=== PATIENT | female | born 1950 | race Caucasian/White ===

== ENCOUNTER 2017-08-08 23:32 | Inpatient (IN) | payer MEDICARE ==
[~2017-08-08] VITALS: Ht 157.5 cm; Wt 61.8 kg
[2017-08-09] MEDS ORDERED: ONDANSETRON 2MG/ML, 2ML ONE (00:24)
[2017-08-09] MEDS ORDERED: MORPHINE SULFATE 4 MG/ML, 1ML ONE (00:24)
[2017-08-09 00:29] LABS: HEMATOCRIT 49.5 % (34.6-47.8); HEMOGLOBIN 16.8 g/dL (11.7-16.4)
[2017-08-09] MEDS ORDERED: SODIUM CHLORIDE FLUSH 10ML SYR IVF ONE (00:30)
[2017-08-09] MEDS ORDERED: MORPHINE SULFATE 4 MG/ML, 1ML IVPush PRN (00:30)
[2017-08-09] MEDS ORDERED: SODIUM CHLORIDE 0.9% 1,000ML IVBOLUS ONE (00:30)
[2017-08-09] MEDS ORDERED: ONDANSETRON 2MG/ML, 2ML IVPush ONE (00:30)
[2017-08-09 01:13] LABS: ASPARTATE AMINO TRANSFERASE 16 U/L (15-37); BLOOD UREA NITROGEN 16 mg/dL (7-18)
[2017-08-09] MEDS ORDERED: OMNIPAQUE 350 MG/ML, 100ML BOTTLE ONE (01:31)
[2017-08-09] MEDS ORDERED: SODIUM CHLORIDE 0.9% 1,000 ML IV ONE (02:52)
[2017-08-09] MEDS ORDERED: ONDANSETRON 2MG/ML, 2ML IVPush PRN ×2 (03:00→04:00)
[2017-08-09] MEDS ORDERED: SODIUM CHLORIDE FLUSH 10ML SYR IVF PRN (03:00)
[2017-08-09] MEDS ORDERED: hydrALAzine 20 MG/ML, 1ML IVPush PRN (04:00)
[2017-08-09] MEDS ORDERED: HYDROmorphone 2 MG/ML, 1ML IVPush PRN (04:00)
[2017-08-09] MEDS: LACTATED RINGERS 1,000 ML IV SCH ×2 (05:12→14:00)
[2017-08-09 05:19] VITALS: BP 118/73
[2017-08-09] MEDS: ENOXAPARIN 40 MG/0.4 ML SQ SCH (05:57)
[2017-08-09 08:31] VITALS: BP 110/70
[2017-08-09 12:50] VITALS: BP 102/67
[2017-08-09 19:44] VITALS: BP 114/73
[2017-08-10] MEDS: LACTATED RINGERS 1,000 ML IV SCH ×2 (01:09→10:10)
[2017-08-10 01:38] VITALS: BP 101/61
[2017-08-10 05:39] LABS: HEMATOCRIT 37.7 % (34.6-47.8); HEMOGLOBIN 12.8 g/dL (11.7-16.4); WHITE BLOOD COUNT 5.9 x10^3/uL (3.4-10)
[2017-08-10 05:46] LABS: BLOOD UREA NITROGEN 8 mg/dL (7-18)
[2017-08-10 05:50] LABS: ASPARTATE AMINO TRANSFERASE 14 U/L (15-37)
[2017-08-10 06:55] VITALS: BP 112/70
[2017-08-10] MEDS ORDERED: PANTOPRAZOLE 40 MG IV IVPush SCH (09:00)
[2017-08-10] MEDS: ENOXAPARIN 40 MG/0.4 ML SQ SCH (09:42)
[2017-08-10 14:04] VITALS: BP 122/75
== END 2017-08-10 13:30 | disposition home or self-care (01) | DRG 389 ==
LOC: ED 23:59 → EDIP 08-09 02:52 → 4EST 08-09 04:51
PROVIDERS: ADMIT Hospitalist; ATTEND Hospitalist
DX: K56.609 Unspecified intestinal obstruction, unspecified as to partial versus complete obstruction (principal); E44.1 Mild protein-calorie malnutrition; E86.9 Volume depletion, unspecified; K52.9 Noninfective gastroenteritis and colitis, unspecified; Z90.710 Acquired absence of both cervix and uterus; Z90.49 Acquired absence of other specified parts of digestive tract
CPT/HCPCS: 36415; 74177; 80053; 81001; 83690; 83735; 84100; 85025; 96374; 96375; J1650; J2405; Q9967; C9113; J7030; J7120